=== PATIENT | female | born 1970 | race African-American/Black ===

== ENCOUNTER 2021-04-23 12:04 | Inpatient (IN) | payer BC ==
[~2021-04-23] VITALS: Ht 157.5 cm; Wt 73.9 kg
[2021-04-23 12:33] LABS: ABSOLUTE NEUTROPHILS 3.4 thou/uL (1.4-8.2); BASOPHILS 0.7 % (0.0-2.0); EOSINOPHILS 1.7 % (0.0-3.0); HEMATOCRIT 35.8 % (37.0-47.0); HEMOGLOBIN 11.8 gm/dL (12.0-15.0); MCH 28.5 pg (26.0-34.0); MCV 86.3 fL (80.0-100.0); PLATELET COUNT 264 thou/uL (150-400); POLYS 50.6 % (36.0-66.0); RBC 4.15 mil/uL (4.20-5.00); RDW 13.7 % (10.5-14.5); WBC 6.6 thou/uL (4.0-11.0)
[2021-04-23 12:40] LABS: CALCIUM 9.5 mg/dL (8.5-10.1); CREATININE 0.7 mg/dL (0.6-1.0); POTASSIUM 3.6 mmol/L (3.5-5.1)
[2021-04-23 12:50] LABS: ALBUMIN 3.7 g/dL (3.4-5.0); MAGNESIUM 1.7 mg/dL (1.8-2.4); TOTAL BILIRUBIN 0.2 mg/dL (0.2-1.0); TOTAL PROTEIN 8.2 g/dL (6.4-8.2)
[2021-04-23 17:13] VITALS: BP 133/81
[2021-04-23 17:22] VITALS: BP 167/100
[2021-04-23 17:29] VITALS: BP 167/100
--- NOTE | 2021-04-23 18:17 | NUR ---
ADMITTED TO 4S FOR OVERNIGHT OBSERVATION FOR CHEST PAIN. A/O X 4. ROOM AIR. AD JEFF. RIGHT AC IV. SR ON TELE. NO CURRENT CHEST PAIN. NO NITRO GIVEN, ASA GIVEN IN ED. DAUGHTER AT BEDSIDE.
[2021-04-23 19:33] VITALS: BP 121/70
--- NOTE | 2021-04-24 05:08 | NUR ---
patient aox4 makes needs known.patient denied chest pains this shift. patient encouraged fluids.patient is up at daphnie. patient in bed asleep at this time breathing regular and unlaboured.
[2021-04-24 05:17] LABS: HEMATOCRIT 35.2 % (37.0-47.0); HEMOGLOBIN 11.4 gm/dL (12.0-15.0); MCH 28.5 pg (26.0-34.0); MCHC 32.6 g/dL (28.0-37.0); MCV 87.6 fL (80.0-100.0); RBC 4.01 mil/uL (4.20-5.00); RDW 14.2 % (10.5-14.5); WBC 5.1 thou/uL (4.0-11.0)
[2021-04-24 05:32] LABS: CALCIUM 9.2 mg/dL (8.5-10.1); CHOLESTEROL 340 mg/dL (<200); CREATININE 0.7 mg/dL (0.6-1.0); HDL CHOLESTEROL 88 mg/dL (>40); LDL CHOLESTEROL 235 mg/dL (<100); MAGNESIUM 1.9 mg/dL (1.8-2.4); POTASSIUM 4.1 mmol/L (3.5-5.1); TC:HDL 3.9 Ratio (Not establshd); TRIGLYCERIDE 86 mg/dL (<150); VLDL 17 mg/dL (<40)
[2021-04-24 05:41] LABS: SERUM ASSESSMENT Clear
[2021-04-24 05:59] LABS: APTT 31.3 Seconds (24.5-32.8); INR 0.96; PROTIME 10.5 Seconds (10.5-12.1)
[2021-04-24 07:25] VITALS: BP 123/88
[2021-04-24] MEDS ORDERED: CRESTOR20 MG PO (10:02)
[2021-04-24] MEDS ORDERED: ASPIRIN325 PO (10:02)
--- NOTE | 2021-04-24 10:38 | NUR ---
Assumed patient care at shift change. Assessment as charted. Medications administered per EMAR. Patient is A&Ox4 and makes needs known. Denies pain but states that "the funny feeling in my chest comes and goes". Patient became tearful when speaking about her late who last year. Patient was seen by cardiology team and was provided education. Discharge imminent; hospitalist will complete orders. Steady on feet but calls as needed
[2021-04-24] MEDS ORDERED: PEPCID20 MG PO (11:03)
[2021-04-24] MEDS ORDERED: METOPROLOL SUCC25 M1 PO (11:03)
[2021-04-24 11:55] VITALS: BP 103/66
[2021-04-24 12:26] VITALS: BP 103/66
--- NOTE | 2021-04-25 08:07 | EKG ---
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
--- NOTE | 2021-04-25 08:24 | EKG ---
[place] [address] 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 : 1970 Requested By: Marty Kelly Order Number: [id number] MD: Mitesh Simon Measurements Intervals [place] Rate: 80 P: 60 [place]: 152 QRS: 29 QRSD: 85 T: -2 QT: 382 QTc: 441 Interpretive Statements Sinus rhythm Left atrial enlargement Probable left ventricular hypertrophy Anterior Q waves, possibly due to LVH Compared to ECG 04/23/2021 12:09:35 Sinus tachycardia no longer present ST segment abnormality less pronounced Electronically Signed On 04-25-2021 8:24:34 HERBARIUM CURATOR by Mitesh Simon [email or web address] <ELECTRONICALLY SIGNED> By: Mitesh Simon MD, [facility] 04/25/21823 1039 1039 Mitesh Simon MD, [facility] /EPI
== END 2021-04-24 13:00 | disposition home or self-care (01) | DRG 313 ==
LOC: ER 12:04 → EROBS 13:51 → 4S 17:06
PROVIDERS: Nurse Practitioner; ADMIT Internal Medicine; ATTEND Internal Medicine
DX: R07.89 Other chest pain (principal); Z20.822 Contact with and (suspected) exposure to COVID-19; I10 Essential (primary) hypertension; E78.5 Hyperlipidemia, unspecified; K21.9 Gastro-esophageal reflux disease without esophagitis; J45.909 Unspecified asthma, uncomplicated; F41.9 Anxiety disorder, unspecified; Z88.8 Allergy status to other drugs, medicaments and biological substances; E78.01 Familial hypercholesterolemia; E83.42 Hypomagnesemia
CPT/HCPCS: 10100